=== PATIENT | female | born 1950 | race African-American/Black ===

== ENCOUNTER → 2018-03-12 | Outpatient (CLI) | payer OTHER ==
[~2018-03-12] MED LIST: AMITRIPTYLINE H10 M1 PO; BAYER CHEWABLE81 MG PO; COZAAR 50 MG TA50 M1 PO; HYDROCODON-ACE1 EAC7 PO; LISINOPRIL20 MG; TOPROL XL50 MG PO
== END ==
LOC: RAD 09:08
DX: M47.814 Spondylosis without myelopathy or radiculopathy, thoracic region (principal)

== ENCOUNTER → 2018-11-09 | Outpatient (CLI) | payer OTHER | LOC: MRI 06:53 | DX: D49.7 Neoplasm of unspecified behavior of endocrine glands and other parts of nervous system (principal) ==

== ENCOUNTER → 2020-02-07 | Outpatient (CLI) | payer BC, OTHER ==
[~2020-02-07] VITALS: Ht 172.7 cm; Wt 97.5 kg
[~2020-02-07] MED LIST changes: +METROGEL-VAGINA70 GM VAG; +VALSARTAN-HCTZ1 EAC2 PO; +VITAMIN D325 MC3 PO
--- NOTE | 2020-02-08 17:07 | PATH ---
[facility] [address] [place] [address] PATHOLOGY RPT PROCEDURE Name: MARCY SHERMANWANDA VITAL Room #: REG [facility] Capo.#: [id number] Admission: 02/07/20 Date of : 52 Discharge: Report #: [id number] Path Case #: [id number] [facility] Accession Number: [id number] . 01 Material submitted: . PART A: duodenum - BIOPSY OF DUODENUM R/O CELIAC PART B: stomach - BIOPSY OF ANTRUM R/O H. PYLORI PART C: esophagus - BIOPSY OF DISTAL ESOPHAGUS R/O EOE. Modifiers: distal PART D: esophagus - BIOPSY OF MID ESOPHAGUS R/O EOE. Modifiers: mid . 01 Clinical history: . GERD, dysphagia . 01 Frozen section diagnosis: . . . /MBR . 02 Diagnosis: A. Small bowel mucosa, duodenum, endoscopic biopsy: - No diagnostic abnormalities present. - Negative for villous blunting or increase in intraepithelial lymphocytes. . B. Gastric mucosa, antrum, endoscopic biopsy: - Mild chronic gastritis with features of reactive gastropathy. - Negative for intestinal metaplasia or atrophy. - Negative for Helicobacter pylori (properly controlled immunohistochemical stain performed). . C. Squamous mucosa, distal esophagus to rule out eosinophilic esophagitis, endoscopic biopsy: - Mild esophagitis. - Negative for increase in intraepithelial eosinophils. - Negative for intestinal metaplasia or dysplasia. . D. Squamous mucosa, mid esophagus to rule out eosinophilic esophagitis, endoscopic biopsy: - Mild esophagitis. - Negative for increase in intraepithelial eosinophils. - Negative for intestinal metaplasia or dysplasia. . (IUV:physician general practice; 02/08/2020) R 02/08/2020 1418 Local . 02 Electronically signed: . Cassandra Eric MD, Pathologist [address] [address] PATHOLOGY RPT PROCEDURE Name: WANDA COLLINSH Room #: REG CLDeann Collins#: [id number] Admission: 02/07/20 Date of : 52 Discharge: Report #: [id number] Path Case #: [id number] NPI- [id number] . 01 Gross description: . A. The specimen is received in formalin labeled "Wanda Collins, BX of duodenum rule out celiac" and consists of multiple fragments of pink-campbell tissue measuring 0.4 x 0.4 x 0.2 cm in aggregate which are entirely submitted in A1. . B. The specimen is received in formalin labeled "Marcy ShermanWanda, BX of antrum rule out H. pylori" and consists of a fragment of pink-campbell tissue measuring 0.3 x 0.3 x 0.3 cm which is entirely submitted in B1. . C. The specimen is received in formalin labeled "Marcy Sherman, Wanda, BX of distal esophagus rule out eosinophilic esophagitis" and consists of 2 fragments of white-campbell tissue measuring 0.5 x 0.2 x 0.2 cm in aggregate which are entirely submitted in C1. . D. The specimen is received in formalin labeled "Marcy Sherman, Wanda, BX of mid esophagus rule out eosinophilic esophagitis" and consists of 2 fragments of white-campbell tissue measuring 0.3 x 0.2 x 0.1 cm in aggregate which are entirely submitted in D1. (GILA; 02/07/2020) JFQ/JFQ 02/07/2020 2005 Local . 02 Pathologist provided ICD-10: K29.50, K20.9, K21.0, R13.10 . 02 CPT . 980171, 628266, 328382, 024103, [id number] Specimen Comment: A courtesy copy of this report has been sent to [phone], [phone] Specimen Comment: [id number] Specimen Comment: Report sent to / DR RICHARDSON Performed at: [address], [place], [place] [id number] MD Cody Aguilar MD Phone: [phone] Performed at: [address] [id number] MD Cassandra Eric MD Phone: [phone]
== END | disposition home or self-care (01) ==
LOC: GI 11:04
PROVIDERS: ATTEND Internal Medicine Gastroenterology
DX: R10.84 Generalized abdominal pain (principal); R13.19 Other dysphagia; K29.50 Unspecified chronic gastritis without bleeding; K21.0 Gastro-esophageal reflux disease with esophagitis; K31.9 Disease of stomach and duodenum, unspecified; I10 Essential (primary) hypertension; K21.9 Gastro-esophageal reflux disease without esophagitis; Z98.890 Other specified postprocedural states; Z79.899 Other long term (current) drug therapy; Z11.59 Encounter for screening for other viral diseases; Z96.652 Presence of left artificial knee joint; Z98.51 Tubal ligation status
CPT/HCPCS: 62110; 62900

== ENCOUNTER → 2020-09-22 | Outpatient (CLI) | payer OTHER | LOC: CAT 09:23 | DX: Z13.6 Encounter for screening for cardiovascular disorders (principal); E78.00 Pure hypercholesterolemia, unspecified; I25.10 Atherosclerotic heart disease of native coronary artery without angina pectoris ==